=== PATIENT | male | born 1955 | race African-American/Black ===

== ENCOUNTER 2020-02-04 20:10 | Emergency (ER) | payer OTHER ==
[~2020-02-04] VITALS: Ht 177.8 cm; Wt 68.2 kg
[2020-02-04] MEDS ORDERED: MULT1CAP32 PO (20:33)
[2020-02-04] MEDS ORDERED: FURO20TA4 PO (20:33)
[2020-02-04] MEDS ORDERED: CALC0.253 PO (20:33)
[2020-02-04] MEDS ORDERED: METO50 PO (20:33)
[2020-02-04] MEDS ORDERED: BENA5TAB26 PO (20:33)
[2020-02-04] MEDS ORDERED: ASCO-360 PO (20:33)
[2020-02-04] MEDS ORDERED: ATOR40TA71 PO (20:33)
[2020-02-04] MEDS ORDERED: EPOE10I SQ ×2 (20:33→21:20)
[2020-02-04] MEDS ORDERED: ASPI-728 PO (20:33)
[2020-02-04] MEDS ORDERED: SODIUM CHLORIDE 0.9% 1,000 ML IV ONE (20:45)
[2020-02-04] MEDS ORDERED: TAMS-13 PO (21:20)
[2020-02-04] MEDS ORDERED: ALLO300 PO (21:20)
[2020-02-04 21:35] LABS: BASOPHILS % (AUTO) 0.6 % (0.0-2.0); EOSINOPHILS % (AUTO) 0.6 % (1.0-6.0); HEMATOCRIT 31.7 % (41-53); LYMPHOCYTES # (AUTO) 1.8 K/uL (1.0-4.8); LYMPHOCYTES % (AUTO) 23.5 % (22.0-44.0); MEAN CORPUSCULAR HEMOGLOBIN 27.4 pg (26.0-34.0); MEAN CORPUSCULAR HGB CONC 31.5 G/dL (31.0-37.0); MEAN CORPUSCULAR VOLUME 87 fL (80-100); MONOCYTES # (AUTO) 0.8 K/uL (0.1-1.0); MONOCYTES % (AUTO) 10.5 % (2.0-9.0); NEUTROPHILS % (AUTO) 64.8 % (40.0-70.0); PLATELET COUNT (AUTO) 120 K/uL (150-450); RED BLOOD CELL COUNT(AUTO) 3.65 MIL/uL (4.50-5.90); RED CELL DISTRIBUTION WIDTH 15.3 % (11.5-14.5)
[2020-02-04 21:44] LABS: INR 1.2 (0.9-1.1); PROTHROMBIN TIME 12.3 SEC (9.4-11.6)
[2020-02-04 21:48] LABS: GLUCOSE,POINT OF CARE 132 MG/DL (70-110)
[2020-02-04 21:49] LABS: CREATININE 5.37 mg/dL (0.60-1.30); POTASSIUM 4.1 mmol/L (3.5-5.1)
[2020-02-04 22:01] LABS: ALBUMIN 3.1 g/dL (3.4-5.0); BILIRUBIN,TOTAL 0.8 mg/dL (0.1-1.0); TOTAL PROTEIN, SERUM 7.2 g/dL (6.4-8.2)
[2020-02-05] MEDS ORDERED: MetroNIDAZOLE 500 MG/NACL 100 ML IV ONE (01:30)
[2020-02-05] MEDS ORDERED: CefTRIAXone 1 GM/DEXTROSE 50 ML IV ONE (01:30)
[2020-02-05 02:45] VITALS: BP 96/63
[2020-02-05 03:16] LABS: GLUCOSE,POINT OF CARE 154 MG/DL (70-110)
== END 2020-02-05 03:30 | disposition short-term general hospital (02) ==
LOC: EMS 20:10
DX: D64.9 Anemia, unspecified (principal); K80.20 Calculus of gallbladder without cholecystitis without obstruction; C80.0 Disseminated malignant neoplasm, unspecified; R55 Syncope and collapse; E11.9 Type 2 diabetes mellitus without complications; I10 Essential (primary) hypertension
CPT/HCPCS: 36415; 70450; 71045; 71250; 74176; 80053; 82550; 82962; 83880; 84484; 85025; 85379; 85610; 85730; 87040; 93005; 96361; 96365; 96368; 99291; J0696; J3490; J7030; 96360